=== PATIENT | male | born 1990 | race African-American/Black ===

== ENCOUNTER → 2016-10-13 | Outpatient (CLI) | payer OTHER ==
--- NOTE | 2016-10-13 14:18 | MRI ---
HISTORY: Right knee pain Study: MRI right knee without contrast Comparison: None Technique: Multiplanar multisequence MRI of the right knee was obtained utilizing standard [facility] protocol. Findings: MENISCI Medial meniscus: Intact. Lateral meniscus: Intact. LIGAMENTS Cruciate ligaments: Intact. Medial collateral ligament: Superficial and deep components intact. No periligamentous edema. Lateral collateral ligament: Intact. Posterolateral corner structures: Intact. EXTENSOR MECHANISM Extensor mechanism The distal quadriceps and patellar tendons are intact. The patella is normally po sitioned within the femoral groove. There is no retinacular disruption. SOFT TISSUES No joint effusion. No Weeks's cyst. OSSEOUS and ARTICULAR STRUCTURES Bones: No fracture, stress reaction, or osseous lesion is seen. Patellofemoral compartment: No hyaline cartilage disease. Medial compartment: No hyaline cartilage disease. Lateral compartment: No hyaline cartilage disease. IMPRESSION: Negative MRI of the right knee. Reported By:
== END ==
LOC: RAD 08:29
PROVIDERS: ATTEND Emergency Medicine
DX: M25.561 Pain in right knee (principal)
CPT/HCPCS: 73721